=== PATIENT | male | born 1965 | race Caucasian/White ===

== ENCOUNTER 2016-05-06 03:34 | Emergency (ER) | payer BC, OTHER ==
[~2016-05-06] VITALS: Ht 188 cm; Wt 95.3 kg
[2016-05-06] MEDS ORDERED: CYCL10TA9 PO (03:52)
[2016-05-06] MEDS ORDERED: CETI10TA17 PO (03:52)
[2016-05-06] MEDS ORDERED: QUIN10TA23 PO (03:52)
[2016-05-06 04:07] LABS: BASOPHILS % (AUTO) 0 % (0-10); EOSINOPHILS # (AUTO) 0.2 10^3/uL (0.0-0.3); EOSINOPHILS % (AUTO) 2 % (0-10); LYMPHOCYTES # (AUTO) 0.3 X 10^3 (1.0-4.0); LYMPHOCYTES % (AUTO) 2 % (12-44); MEAN CORPUSCULAR HEMOGLOBIN 31 PG (25-34); MEAN CORPUSCULAR HGB CONC 36 G/DL (32-36); MEAN CORPUSCULAR VOLUME 87 FL (80-99); MEAN PLATELET VOLUME 10.8 FL (7.4-10.4); MONOCYTES # (AUTO) 0.7 X 10^3 (0.0-1.0); MONOCYTES % (AUTO) 6 % (0-12); NEUTROPHILS # (AUTO) 10.3 X 10^3 (1.8-7.8); NEUTROPHILS % (AUTO) 90 % (42-75); PLATELET COUNT 177 10^3/uL (130-400); RED BLOOD COUNT 5.52 10^6/uL (4.35-5.85); RED CELL DISTRIBUTION WIDTH 13.4 % (10.0-14.5); WHITE BLOOD COUNT 11.4 10^3/uL (4.3-11.0)
[2016-05-06] MEDS ORDERED: NS IV 1000 ML 1,000 ML ONE (04:08)
[2016-05-06] MEDS ORDERED: ONDANSETRON 4 MG/2 ML (SDV) Z0FRAN ONE (04:08)
--- NOTE | 2016-05-06 04:12 | ED GI ---
General Chief Complaint: Abdominal/GI Problems Stated Complaint: VOMITING,ABD & BACK PAIN Nursing Triage Note: pt reports he has been vomiting persitently since 2200. Sepsis Screen: No Definite Risk Source of Information: Patient Exam Limitations: No Limitations History of Present Illness Time Seen By Provider: 04:10 Initial Comments Nausea vomiting and crampy abdominal pain for the past 6 hours. Unable to keep anything down. No diarrhea. He denies fevers. No bad food exposure or sick contacts. No antibiotic use foreign travel. Allergies and Home Medications Allergies Coded Allergies: codeine (Unverified Adverse Reaction, Unknown, 05/06/16) Uncoded Allergies: contrast dye (Adverse Reaction, Unknown, 05/06/16) Home Medications Cetirizine HCl 10 Mg Tablet 10 MG PO DAILY (Reported) Cyclobenzaprine HCl 10 Mg Tablet 10 MG PO TID (Reported) Quinapril HCl 10 Mg Tablet 10 MG PO BID (Reported) Review of Systems Constitutional: malaise weakness Respiratory: No Symptoms Reported Cardiovascular: No Symptoms Reported Gastrointestinal: Abdominal PainDenies Diarrhea, Nausea Vomiting Musculoskeletal: no symptoms reported Psychiatric/Neurological: Weakness Endocrine: No Symptoms Reported All Other Systems Reviewed Negative Unless Noted: Yes Past [place]-Qjrzyx-Tbmijx Hx Patient Social History Alcohol Use: Occasionally Uses Recreational Drug Use: No Smoking Status: Never a Smoker Recent Foreign Travel: No Contact w/Someone Who Travel: No Recent Infectious Disease Expo: No Recent Hopitalizations: No Immunizations Up To Date Date of Influenza Vaccine: Jan 13, 2016 Seasonal Allergies Seasonal Allergies: Yes Surgeries HX Surgeries: Yes (knee scope x 3, sinus surgery, salivary gland removal) Respiratory Hx Respiratory Disorders: No Cardiovascular Hx Cardiac Disorders: Yes Cardiac Disorders: Hypertension Neurological Hx Neurological Disorders: No Reviewed Nursing Assessment Reviewed/Agree w Nursing PMH: Yes Physical Exam Vital Signs VS - Last 72 Hours, by Label 05/06/16 03:46 Temp 100.1 Pulse 123 Resp 24 B/P 140/96 Capillary Refill : Less Than 3 Seconds General Appearance: WD/WN mild distress (retching) HEENT: PERRL/EOMI pharynx normal Neck: supple Respiratory: lungs clear normal breath sounds Cardiovascular: regular rate, rhythm no edema Gastrointestinal: softNo distended, No guarding, No rebound, tenderness ( mild epigastric tenderness) Extremities: normal inspection Neurologic/Psychiatric: alert normal mood/affect Skin: normal color warm/dry Progress/Results/Core Measures Results/Orders Lab Results Laboratory Tests Test 05/06/16 03:58 Range/Units Alanine Aminotransferase (ALT/SGPT) 25 0-55 U/L Albumin 4.4 3.2-4.5 G/DL Alkaline Phosphatase 76 40-136 U/L Anion Gap 12 5-14 MMOL/L Aspartate Amino Transf (AST/SGOT) 21 5-34 U/L BUN/Creatinine Ratio 19 Band Neutrophils 0 % Basophils # (Auto) 0.0 0.0-0.1 10^3/uL Basophils % (Manual) 1 % Basophils (%) (Auto) 0 0-10 % Blood Morphology Comment NORMAL Blood Urea Nitrogen 18 7-18 MG/DL Calcium Level 9.4 8.5-10.1 MG/DL Carbon Dioxide Level 25 21-32 MMOL/L Chloride Level 102 98-107 MMOL/L Creatinine 0.97 0.60-1.30 MG/DL Eosinophils # (Auto) 0.2 0.0-0.3 10^3/uL Eosinophils % (Manual) 2 % Eosinophils (%) (Auto) 2 0-10 % Estimat Glomerular Filtration Rate > 60 Glucose Level 131 H 70-105 MG/DL Hematocrit 48 40-54 % Hemoglobin 17.3 13.3-17.7 G/DL Lipase 19 8-78 U/L Lymphocytes # (Auto) 0.3 L 1.0-4.0 X 10^3 Lymphocytes % (Manual) 4 % Lymphocytes (%) (Auto) 2 L 12-44 % Mean Corpuscular Hemoglobin 31 25-34 PG Mean Corpuscular Hemoglobin Concent 36 32-36 G/DL Mean Corpuscular Volume 87 80-99 FL Mean Platelet Volume 10.8 H 7.4-10.4 FL Monocytes # (Auto) 0.7 0.0-1.0 X 10^3 Monocytes % (Manual) 3 % Monocytes (%) (Auto) 6 0-12 % Neutrophils # (Auto) 10.3 H 1.8-7.8 X 10^3 Neutrophils % (Manual) 90 % Neutrophils (%) (Auto) 90 H 42-75 % Platelet Count 177 130-400 10^3/uL Potassium Level 3.5 L 3.6-5.0 MMOL/L Red Blood Count 5.52 4.35-5.85 10^6/uL Red Cell Distribution Width 13.4 10.0-14.5 % Sodium Level 139 135-145 MMOL/L Total Bilirubin 1.4 H 0.1-1.0 MG/DL Total Protein 7.1 6.4-8.2 G/DL White Blood Count 11.4 H 4.3-11.0 10^3/uL My Orders Orders-TIERRA LOWERY MD Cbc With Automated Diff (05/06/16 03:50) Comprehensive Metabolic Panel (05/06/16 03:50) Lipase (05/06/16 03:50) Manual Differential (05/06/16 03:58) Ondansetron Injection (Zofran Injectio (05/06/16 04:08) Ns Iv 1000 Ml (Sodium Chloride 0.9%) (05/06/16 04:08) Ketorolac Injection (Toradol Injection) (05/06/16 04:14) Medications Given in ED Current Medications Medications Dose Ordered Sig/Stewart Route Start Time Stop Time Status Last Admin Dose Admin Ketorolac Tromethamine 30 mg STK-MED ONCE .ROUTE 05/06/16 04:14 05/06/16 04:17 DC 05/06/16 04:17 30 MG Ondansetron HCl 4 mg 4 mg STK-MED ONCE .ROUTE 05/06/16 04:08 05/06/16 04:09 DC 05/06/16 04:12 4 MG Sodium Chloride 1,000 ml STK-MED ONCE .ROUTE 05/06/16 04:08 05/06/16 04:09 DC 05/06/16 04:12 Vital Signs/I&O Vital Sign - Last 12Hours 05/06/16 03:46 Temp 100.1 Pulse 123 Resp 24 B/P 140/96 Blood Pressure Mean: 111 Departure Communication Progress Notes better after ivf/meds Impression Impression: Primary Impression: Nausea and vomiting Disposition: 01 HOME, SELF-CARE Condition: Stable Departure-Patient Inst. Decision time for Depature: 05:07 Referrals: NO,LOCAL PHYSICIAN (PCP) Primary Care Physician Patient Instructions: Nausea and Vomiting, Adult Scripts Ondansetron (Zofran Odt)4 Mg Tab.rapdis4 Mg PO Q4H PRN VOMITING #14 TAB Prov:TIERRA LOWERY MD 05/06/16 TIERRA LOWERY MD May 06, 2016 04:12
[2016-05-06] MEDS ORDERED: KETOROLAC 30 MG/ML VIAL ONE (04:14)
[2016-05-06 04:29] LABS: ALANINE AMINOTRANSFERASE 25 U/L (0-55); ALBUMIN 4.4 G/DL (3.2-4.5); ANION GAP 12 MMOL/L (5-14); ASPARTATE AMINO TRANSFERASE 21 U/L (5-34); BILIRUBIN,TOTAL 1.4 MG/DL (0.1-1.0); BLOOD UREA NITROGEN 18 MG/DL (7-18); BUN/CREATININE RATIO 19; CALCIUM 9.4 MG/DL (8.5-10.1); CARBON DIOXIDE 25 MMOL/L (21-32); CHLORIDE 102 MMOL/L (98-107); CREATININE SERUM 0.97 MG/DL (0.60-1.30); GFR ESTIMATED > 60; GLUCOSE 131 MG/DL (70-105); LIPASE 19 U/L (8-78); POTASSIUM 3.5 MMOL/L (3.6-5.0); SODIUM 139 MMOL/L (135-145); TOTAL PROTEIN 7.1 G/DL (6.4-8.2)
[2016-05-06 04:48] LABS: BAND NEUTROPHILS 0 %; BASOPHILS % (MANUAL) 1 %; EOSINOPHILS % (MANUAL) 2 %; LYMPHOCYTES % (MANUAL) 4 %; NEUTROPHILS % (MANUAL) 90 %
[2016-05-06] MEDS ORDERED: ONDA4TAB8 PO (05:08)
[2016-05-06] MEDS ORDERED: RX-ONDANSETRON 4 MG ODT (ZOFRAN) PPK #4 PO STA (05:09)
[2016-05-06 05:17] VITALS: BP 125/83
== END 2016-05-06 05:23 | disposition home or self-care (01) ==
LOC: ER 03:37
DX: R11.2 Nausea with vomiting, unspecified (principal); I10 Essential (primary) hypertension; Z79.899 Other long term (current) drug therapy
CPT/HCPCS: 36415; 80053; 83690; 85007; 85027; 96361; 96374; 96375

== ENCOUNTER → 2018-06-06 | Outpatient (CLI) | payer BC ==
[~2018-06-06] MED LIST: CETI10TA17 PO; CYCL10TA9 PO; ONDA4TAB8 PO; QUIN10TA14 PO
== END ==
LOC: CARD 16:06
PROVIDERS: ATTEND Nurse Practitioner Family
DX: I10 Essential (primary) hypertension (principal); R07.9 Chest pain, unspecified
CPT/HCPCS: 93005

== ENCOUNTER → 2019-10-15 | Outpatient (CLI) | payer BC | LOC: LABNPT 06:43 | PROVIDERS: ATTEND Family Medicine | DX: Z20.828 Contact with and (suspected) exposure to other viral communicable diseases (principal) | CPT/HCPCS: 87635 ==